=== PATIENT | female | born 1975 | race African-American/Black ===

== ENCOUNTER 2022-06-08 09:03 | Inpatient (IN) | payer MEDICAID ==
[~2022-06-08] VITALS: Ht 157.5 cm; Wt 76.7 kg
--- NOTE | 2022-06-08 09:05 | NUR ---
called [facility] social [facility] director. states its daniela today. will come after the meeting after 929.
--- NOTE | 2022-06-08 09:23 | NUR ---
rapid influenza and covid swab taken sent to lab
--- NOTE | 2022-06-08 09:24 | NUR ---
waiver signed by pt.
[2022-06-08] MEDS ORDERED: ACETAMINOPHEN ES 500 MG TABLET ONE (09:39)
--- NOTE | 2022-06-08 09:45 | NUR ---
urine sample obtained sent to lab
[2022-06-08] MEDS ORDERED: ACETAMINOPHEN ES 500 MG TABLET PO ONE (10:00)
[2022-06-08 10:22] LABS: BILIRUBIN,URINE 1+ (NEGATIVE); COLOR,URINE DARK YELLOW (YELLOW); LEUKOCYTE ESTERASE ,URINE NEGATIVE (NEGATIVE); NITRITE, URINE POSITIVE (NEGATIVE); PH,URINE 6.5 (5.0-8.0); PROTEIN,URINE 2+ mg/dl (NEGATIVE); UGLUCOSE TRACE mg/dL (NEGATIVE); UROBILINOGEN,URINE >=8.0 EU/dL (0.2)
[2022-06-08] MEDS ORDERED: LISI20TA30 PO (10:44)
[2022-06-08] MEDS ORDERED: LORA10TA7 PO (10:44)
[2022-06-08] MEDS ORDERED: ALBU18HF2 IH (10:44)
[2022-06-08] MEDS ORDERED: FLUT16SP (10:44)
[2022-06-08] MEDS ORDERED: CEFTRIAXONE 1GM BAG (ER ONLY) 50 ML IV ONE ×2 (11:00→11:33)
[2022-06-08] MEDS ORDERED: AZITHROMYCIN 500 MG in IV D5W 250 ML IV ONE (11:00)
[2022-06-08] MEDS ORDERED: IV NS 0.9% 1,000 ML BAG IV ONE ×2 (11:00→12:30)
[2022-06-08 11:17] LABS: BASOPHILS % (AUTO) 0.1 % (0.0-2.0); HEMATOCRIT 46 % (33-45); HEMOGLOBIN 15.4 g/dL (11.5-14.8); LYMPHOCYTES # (AUTO) 0.3 K/uL (0.8-4.8); MEAN CORPUSCULAR HGB CONC 33 g/dl (31.0-36.0); MEAN CORPUSCULAR VOLUME 99 fL (82-100); MONOCYTES # (AUTO) 0.3 K/uL (0.1-1.30); MONOCYTES % (AUTO) 1.7 % (2.0-12.0); NEUTROPHILS # (AUTO) 17.1 K/uL (1.8-8.9); NEUTROPHILS % (AUTO) 96.2 % (43.0-81.0); PLATELET COUNT (AUTO) 156 K/uL (150-450); RED BLOOD CELL COUNT(AUTO) 4.66 MIL/uL (4.0-5.2); WHITE BLOOD COUNT (AUTO) 17.7 K/uL (4.3-11.0)
[2022-06-08 11:42] LABS: ALANINE AMINOTRANSFERASE 143 U/L (12-78); ALKALINE PHOSPHATASE 83 U/L (46-116); ASPARTATE AMINOTRANSFERASE 102 U/L (15-37); BILIRUBIN,TOTAL 2.9 mg/dL (0.2-1.0); CALCIUM, SERUM 8.6 mg/dL (8.5-10.1); CARBON DIOXIDE 25 mmol/L (21-32); CHLORIDE 98 mmol/L (98-107); CREATININE 0.8 mg/dL (0.6-1.3); GLUCOSE 121 mg/dL (74-106); POTASSIUM 3.2 mmol/L (3.5-5.1); SODIUM SERUM 131 mmol/L (136-145); TOTAL PROTEIN, SERUM 7.7 g/dL (6.4-8.2); UREA NITROGEN, BLOOD 14 mg/dL (7-18)
--- NOTE | 2022-06-08 12:10 | NUR ---
Television Installer Helper Consult SW was informed that pt. was experiencinghomelessness. Pt. is a 46 year old black female who is in the ER bed 3. Sw met with pt. at bedside. Pt. stated that she had been homeless for 10 months. Pt added her daughter as a person to notify ([facility] ). Pt. reported that she receives calFresh. Pt. is independent with her ADL's. Pt. denied psychiatic dx, hallucinations, and denied suicidal and homicial ideation. Sw offered pt. homeless resources and directions to [facility] (Address: [id number] [place] [phone]) in which pt accepted. Pt signed homeless waiver form and was placed in her chart. Year-round shelters: [place] [facility] [place] [address] [place] [address] ; [facility] [place] [address] [place] [address]; [place] [facility] [address] [facility] [address] Hygiene: [facility]: [address] [address] [place] ; [facility] [address] [facility] ; [facility] [address] [facility] . Food Resources: [place] [facility] at [facility]- [address] [facility]; Meet Each Need with Dignity ([facility]) [address] [facility] [place]; [facility] 4352 [facility]; [facility] 9[address] [facility]. Mental Health resources provided: [facility] [address] [place] [address] ; [facility] [address] [facility] [address], [place] [address] ; Elo Leggett [facility] [address] [place] [address] ; [facility] [place], [place] [phone] Healthcare Clinics: [facility] [address] [facility], [address] [place]. [place] ; [facility] [address] [facility] [address] [place] [address]; [facility] [address] [place] [address] [phone]) [phone] Counseling--Outpatient [facility] [address] [facility], [place] [address] (Specializes in in-depth psychotherapy for emotional distress: anxiety, depression, interpersonal conflicts, life transitions, childhood abuse) [facility] [address] [place] [address] (Assist with solving problem marital difficulties, separation & divorce, aging parents, & grief, chronic & terminal illness) [facility] [address] [place] [address] (Deal with loss & grief, anxiety, marital difficulties) Homebound/Mental Health Services [address] [facility], [address] [place] [address] (Provide in-home mental services to people who are incapable of leaving their homes) [facility] Elder[facility] [address] [facility] [place] [address] [facility] [address] [facility]. [place], [place] [phone] PSYCHIATRIC OUTPATIENT SERVICES [facility] Partial Hospitalization and Intensive Outpatient Program (Managed Care and [place] Only)[address] [facility] [phone] [facility] Partial Hospitalization and Outpatient [id number] [facility]. [address] [place], [place] [phone] [facility] [id number] [facility] [address] [place], [place] [phone] [facility] Partial Hospitalization and Outpatient [id number] [facility] Justino, [phone] Substance Abuse resources provided included: [facility] Substance Abuse Self-Helpline ([facility]) ; [facility] [address] [facility]. [place] [phone] ; [facility] [place] [address] [facility] [address] ; [facility] [address] [facility] [address] ; [facility] [address] [facility] [address] ; [facility] 4940 [facility] [phone] ; [facility] 9[address] [facility] [phone] ; [facility] Substance Abuse Helpline([facility] ; [facility] ; [facility] [place]; [facility] [place]; [facility] [place]; [facility] Jamar мария; [facility] [place]; [facility] [place]; [facility]; [facility] [place] [place]; Alcoholics Anonymous -SFV; Eq-Rxvh-Dwtfcru ; Marijuana Anonymous -SFV; Narcotics Anonymous www.na.org;
--- NOTE | 2022-06-08 13:18 | NUR ---
Brian andrews in [facility] - 06/08/22 at 1318 by ULISSES swapna cho" [phone]
--- NOTE | 2022-06-08 14:04 | NUR ---
RUY MARTINEZ [phone]. PLANNING TO TRANSFER PATIENT TO A CONTRACTED FACILITY/HOSPITAL. WILL CALL US BACK WITHIN A HOUR. PRIMARY RN MADE AWARE.
--- NOTE | 2022-06-08 14:38 | NUR ---
[facility] CALLED [employer] [facility]ANT [facility]AG[facility].
--- NOTE | 2022-06-08 14:53 | NUR ---
lab reported lactic acid 2.4
[2022-06-08] MEDS ORDERED: Z GUARD REMEDY 4 OZ OINT TP PRN (16:00)
[2022-06-08] MEDS ORDERED: ONDANSETRON HCL/PF 4 MG/2 ML VIAL IVP PRN (16:00)
[2022-06-08] MEDS ORDERED: ALBUTEROL SULFATE 8 GM HFA.AER.AD IH PRN (16:00)
[2022-06-08] MEDS: ENOXAPARIN SODIUM 40 MG/0.4 ML DISP.SYRIN SQ SCH (16:00)
[2022-06-08] MEDS ORDERED: MAGNESIUM HYDROXIDE 30 ML UDC PO PRN (16:00)
[2022-06-08] MEDS ORDERED: LORATADINE 10 MG TABLET PO PRN (16:00)
[2022-06-08] MEDS ORDERED: IV NS 0.9% 1,000 ML IV PRN (16:00)
[2022-06-08] MEDS ORDERED: FLUTICASONE PROPIONATE 16 GM BOTTLE NS PRN (16:00)
[2022-06-08] MEDS ORDERED: MAG HYDROX/AL HYDROX/SIMETH 30 ML UDC PO PRN (16:00)
[2022-06-08] MEDS ORDERED: ACETAMINOPHEN 325 MG TABLET PO PRN (16:00)
[2022-06-08] MEDS ORDERED: ALBUTEROL FS 2.5 MG/0.5 ML VIAL.NEB NEB PRN (16:30)
--- NOTE | 2022-06-08 19:35 | NUR ---
RECEIVED REPORT FROM FAZAL BROOKS. PATIENT CAME EARLIER WITH CC OF COUGH AND CONGESTION. AAOX4. ABLE TO MAKE NEEDS KNOWN. RECEIVED WITH IV CANNULA G20 ON LEFT AC. PATIENT FOR ADMISSION DUE TO PNEUMONIA. VITALS BEING MONITORED.
--- NOTE | 2022-06-08 20:25 | NUR ---
RO[facility]
--- NOTE | 2022-06-08 21:00 | NUR ---
CALLED [facility], WAITING TO GIVE REPORT TO FAZAL FRANK
--- NOTE | 2022-06-08 21:13 | NUR ---
REPORT GIVEN TO PIERRE TORRES
--- NOTE | 2022-06-08 21:40 | NUR ---
COVID PCR DONE AND SENT TO LAB
--- NOTE | 2022-06-08 21:58 | NUR ---
PT TRANSFERRED TO [facility] VIA ACLS PROTOCOL. VSS. ALL BELONGINGS WITH PT
--- NOTE | 2022-06-08 22:00 | NUR ---
RN INITIAL NOTE PT ARRIVED TO UNIT VIA GURNEY. PT A&O X4, CALM, COOPERATIVE. PT ADMITTED FOR PNEUMONIA WITH SIGNIFICANT MEDICAL HISTORY OF ASTHMA. PER PT REPORT, PT SMOKES CIGARETTES AND LAST SMOKED 4 DAYS AGO. PT ON 5L NC WITH CURRENT O2SAT OF 95%; PT NOTED TO HAVE NON-PRODUCTIVE COUGH AND REPORTS OF SOB, ESPECIALLY WHEN TURNING TO HER LEFT SIDE. HR NOTED TO BE ELEVATED AT 109 AND BP 144/95; OTHERWISE VSS, WILL CONTINUE TO MONITOR THROUGHOUT THE NIGHT NEEDED. ALL BELONGINGS CHECKED AND ACCOUNTED FOR. SKIN ASSESSMENT DONE; SKIN NOTED TO BE INTACT. IV ACCESS ON LAC 20G, INTACT AND PATENT, FLUSHES EASILY WITH NO RESISTANCE; NS STARTED AT 75 ML/HR. PUREWICK APPLIED TO PT PT ENDORSES OF BLE WEAKNESS. BED IN LOWEST POSITION, CALL LIGHT WITHIN REACH, SIDE RAILS UP X2. WILL INITIATE PLAN OF CARE.
--- NOTE | 2022-06-08 23:11 | NUR ---
RN NOTE LOVENOX SCHEDULED FOR 1600 NOT ADMINISTERED PT WAS NOT PRESENT IN UNIT AT THIS TIME. PT ARRIVED TO UNIT AROUND 2200.
--- NOTE | 2022-06-08 23:33 | NUR ---
RN NOTE PT COMPLAINS OF GENERALIZED BODY PAIN. PT ADMINISTERED TYLENOL 650 MG.
[2022-06-09] VITALS: BP 144/95
[2022-06-09 04:00] VITALS: BP 135/85
--- NOTE | 2022-06-09 06:29 | NUR ---
MS RN CLOSING NOTE PT REMAINS IN BED, ASLEEP BUT EASILY AROUSABLE, A&O X4, CALM, COOPERATIVE. CONTINUES TO BE ON 5L NC WITH O2SAT RANGING FROM 95%-98%; CONTINUES TO HAVE NON-PRODUCTIVE COUGH AND SOB AT TIMES; NO OTHER S/S OF RESP DISTRESS. VSS THROUGHOUT THE NIGHT WITH NO SIGNIFICANT CHANGES. PUREWICK IN PLACE DRAINING CLEAR AND YELLOW URINE. LAC 20G INTACT AND PATENT, FLUSHES EASILY WITH NO RESISTANCE; NS INFUSING AT 75 ML/HR. ALL DUE MEDS ADMINISTERED DURING THE NIGHT. BED IN LOWEST POSITION, CALL LIGHT WITHIN REACH, SIDE RAILS UP X2. WILL ENDORSE TO DAYSHIFT NURSE TO CONTINUE CARE.
[2022-06-09 06:43] LABS: BASOPHILS % (AUTO) 0.1 % (0.0-2.0); HEMATOCRIT 43 % (33-45); LYMPHOCYTES # (AUTO) 0.6 K/uL (0.8-4.8); LYMPHOCYTES % (AUTO) 3.3 % (20.0-44.0); MEAN CORPUSCULAR HGB CONC 33 g/dl (31.0-36.0); MEAN CORPUSCULAR VOLUME 101 fL (82-100); MONOCYTES # (AUTO) 0.7 K/uL (0.1-1.30); NEUTROPHILS # (AUTO) 16.7 K/uL (1.8-8.9); NEUTROPHILS % (AUTO) 92.6 % (43.0-81.0); PLATELET COUNT (AUTO) 124 K/uL (150-450); RED BLOOD CELL COUNT(AUTO) 4.22 MIL/uL (4.0-5.2)
[2022-06-09 06:51] LABS: CALCIUM, SERUM 8.6 mg/dL (8.5-10.1); CREATININE 0.7 mg/dL (0.6-1.3); MAGNESIUM 1.9 mg/dL (1.8-2.4); PHOSPHORUS 2.9 mg/dL (2.5-4.9); POTASSIUM 3.4 mmol/L (3.5-5.1)
--- NOTE | 2022-06-09 07:49 | NUR ---
MS R NOTE PT IN BED, ASLEEP BUT EASILY AROUSABLE, A&O X4, CALM, COOPERATIVE. CONTINUES TO BE ON 5L NC NO SOB NOTED AT THIS TIME, NO OTHER S/S OF RESP DISTRESS. PUREWICK IN PLACE DRAINING CLEAR AND YELLOW URINE. LAC 20G INTACT AND PATENT, FLUSHES WELL,; NS INFUSING AT 75 ML/HR. BED IN LOWEST POSITION, CALL LIGHT WITHIN REACH, SIDE RAILS UP X2. WILL CONT TO MONITOR
[2022-06-09 08:00] VITALS: BP 127/92
[2022-06-09] MEDS: LISINOPRIL (20MG) 20 MG TABLET PO SCH (08:27)
[2022-06-09] MEDS ORDERED: POTASSIUM CHLORIDE 20 MEQ TAB.PRT.SR PO ONE (11:00)
[2022-06-09] MEDS: AZITHROMYCIN 500 MG in IV D5W 250 ML IV SCH (11:05)
--- NOTE | 2022-06-09 11:27 | NUR ---
ms rn note dtr pita at bedside aware that urine color uri reddish, aware that on ivf a and at also aware that k 3.4 was replaced by pharmacist
[2022-06-09 11:56] LABS: BAND % (MANUAL) 25 % (0.0-5.0); LYMPHOCYTES % (MANUAL) 13 % (16-48); NEUTROPHILS % (MANUAL) 54 (42-76)
[2022-06-09 11:57] LABS: MONOCYTES % (MANUAL) 8 % (0-11.0)
[2022-06-09] MEDS: CEFTRIAXONE 1 G in IV D5W 50 ML IV SCH (12:11)
--- NOTE | 2022-06-09 12:30 | NUR ---
MS RN NOTE ABDOMEN US DONE ORDERED, KEEP CLEAN DRY
[2022-06-09 13:41] LABS: ALBUMIN 2.2 g/dL (3.4-5.0); BILIRUBIN,DIRECT 0.5 mg/dL (0.0-0.2); BILIRUBIN,TOTAL 1.2 mg/dL (0.2-1.0); TOTAL PROTEIN, SERUM 6.3 g/dL (6.4-8.2)
[2022-06-09] MEDS: IV NS 0.9% 1,000 ML IV SCH ×2 (13:55→18:02)
--- NOTE | 2022-06-09 15:56 | NUR ---
MS RN NOTE PATIENT RESTING COMFORTABLY IN BED , ON IVF ORDERED AT 175 ML PER HOUR , ON RA, NO SOB , WILL MONITOR
[2022-06-09 16:00] VITALS: BP 127/89
--- NOTE | 2022-06-09 16:36 | NUR ---
ms rn note per pharmacy started on Bactroban bid mrsa nares
--- NOTE | 2022-06-09 18:43 | NUR ---
MS RN NOTE PATIENT IN BED ,ALERT ORIENTED, ON 3L NC ,NO SOB NOTED AT THIS TIME, ON PURRE WICK TOLERATED, LAC HL INTACT AND FLUSHED WELL , ON IVF ORDERED , BED IN LOWEST AND LOCKED POSITION , CALL LIGHT WITHIN REACH, WILL CONT TO MONITOR CLOSELY
--- NOTE | 2022-06-09 19:30 | NUR ---
PATIENT IN BED AWAKE, ALERT ORIENTED X4, ON 5LPM VIA NC, NO SOB NOTED AT THIS TIME, ON PURE WICK, LAC #20 INFUSING NS AT 175ML/HR,, SAFETY MEASURES IN PLACE. WILL CONTINUE PLAN OF CARE.
[2022-06-09] MEDS: MUPIROCIN OINT 2% 22 GM TUBE NS SCH (20:46)
[2022-06-09] MEDS: ENOXAPARIN SODIUM 40 MG/0.4 ML DISP.SYRIN SQ SCH (20:47)
[2022-06-10] VITALS: BP 120/85
[2022-06-10] MEDS: IV NS 0.9% 1,000 ML IV SCH ×6 (01:45→23:54)
--- NOTE | 2022-06-10 06:44 | NUR ---
PT ASLEEP, EASILY AWAKEN BY CALLING HER NAME. ALERT ORIENTED X4, ON 5LPM VIA NC, NO SOB NOTED AT THIS TIME, LAC #20 INFUSING NS AT 175ML/HR,, DUE MEDS GIVEN. NEEDS ATTENDED. SAFETY MEASURES MAINTAINED. WILL ENDORSE TO NEXT NURSE ON DUTY FOR CONTINUITY OF CARE.
--- NOTE | 2022-06-10 07:05 | NUR ---
MS RN NOTE: RECEIVED PT. IN BED, AWAKE, AOX4, NO COMPLAINTS OF PAIN/DISCOMFORT AT THIS TIME. ON 02 VIA NASAL CANNULA AT 5L/MIN, NO S/S OF RESPIRATORY DISTRESS. ON PUREWICK, DRAINING CLEAR YELLOW URINE. SKIN INTACT. IV ACCESS ON L AC #20G, WITH NS RUNNING AT 175 ML/HR. IV DRESSING C/D/I, WITH NO S/S OF INFILTRATION. SAFETY MEASURES IN PLACE: BED IN LOWEST AND LOCKED POSITION, SIDE RAILS UPX2, HOB ELEVATED AT 30 DEGREES, BED ALARM ON, CALL LIGHT AND BELONGINGS WITHIN REACH. WILL ENCOURAGE FREQUENT REPOSITIONING IN BED. WILL CONTINUE TO MONITOR PT. FOR ANY CHANGES.
[2022-06-10 07:17] LABS: BASOPHILS % (AUTO) 0.4 % (0.0-2.0); EOSINOPHILS % (AUTO) 0.4 % (0.0-6.0); HEMATOCRIT 40 % (33-45); HEMOGLOBIN 13.2 g/dL (11.5-14.8); LYMPHOCYTES # (AUTO) 1.1 K/uL (0.8-4.8); LYMPHOCYTES % (AUTO) 8.6 % (20.0-44.0); MEAN CORPUSCULAR HGB CONC 33 g/dl (31.0-36.0); MEAN CORPUSCULAR VOLUME 100 fL (82-100); MONOCYTES # (AUTO) 0.8 K/uL (0.1-1.30); MONOCYTES % (AUTO) 6.4 % (2.0-12.0); NEUTROPHILS # (AUTO) 10.9 K/uL (1.8-8.9); NEUTROPHILS % (AUTO) 84.2 % (43.0-81.0); PLATELET COUNT (AUTO) 137 K/uL (150-450)
[2022-06-10 07:58] LABS: ALBUMIN 2.2 g/dL (3.4-5.0); BILIRUBIN,DIRECT 0.4 mg/dL (0.0-0.2); BILIRUBIN,TOTAL 0.7 mg/dL (0.2-1.0); CALCIUM, SERUM 8.1 mg/dL (8.5-10.1); CREATININE 0.6 mg/dL (0.6-1.3); POTASSIUM 3.5 mmol/L (3.5-5.1); TOTAL PROTEIN, SERUM 6.5 g/dL (6.4-8.2)
[2022-06-10 08:00] VITALS: BP 138/84
[2022-06-10] MEDS ORDERED: POTASSIUM PHOSPHATE MM 15 MMOL in IV NS 0.9% 250 ML IV SCH (08:30)
[2022-06-10] MEDS: POTASSIUM PHOSPHATE MM 7.5 MMOL in IV NS 0.9% 100 ML IV SCH ×4 (09:42→19:36)
[2022-06-10] MEDS: LISINOPRIL (20MG) 20 MG TABLET PO SCH (09:43)
[2022-06-10] MEDS: AZITHROMYCIN 500 MG in IV D5W 250 ML IV SCH (11:00)
[2022-06-10] MEDS ORDERED: ALBUTEROL FS 2.5 MG/0.5 ML VIAL.NEB NEB PRN (11:30)
[2022-06-10] MEDS ORDERED: ALBUTEROL SULFATE 8 GM HFA.AER.AD IH PRN (11:30)
[2022-06-10] MEDS: IPRATROPIUM NEB FS 0.5 MG/2.5 ML AMPUL.NEB NEB SCH ×2 (12:00→18:00)
[2022-06-10] MEDS ORDERED: IPRATROPIUM/ALBUTEROL INHALER IH SCH (12:00)
[2022-06-10] MEDS: MUPIROCIN OINT 2% 22 GM TUBE NS SCH ×2 (12:33→21:15)
[2022-06-10] MEDS: CEFTRIAXONE 1 G in IV D5W 50 ML IV SCH (12:34)
[2022-06-10 16:00] VITALS: BP 148/91
[2022-06-10 17:42] LABS: BAND % (MANUAL) 8 % (0.0-5.0); EOSINOPHILS % (MANUAL) 1 % (0-4); LYMPHOCYTES % (MANUAL) 5 % (16-48); MONOCYTES % (MANUAL) 3 % (0-11.0); NEUTROPHILS % (MANUAL) 83 (42-76)
--- NOTE | 2022-06-10 19:10 | NUR ---
MS RN CLOSING NOTE: PT. REMAINS IN BED, AWAKE, AOX4, NO COMPLAINTS OF PAIN/DISCOMFORT AT THIS TIME. ON 02 VIA NASAL CANNULA AT 5L/MIN, NO S/S OF RESPIRATORY DISTRESS. ON PUREWICK, DRAINED 1200ML CLEAR YELLOW URINE THIS SHIFT. IV ACCESS ON L AC #20G, WITH NS RUNNING AT 175 ML/HR. IV DRESSING C/D/I, WITH NO S/S OF INFILTRATION. SAFETY MEASURES MAINTAINED: BED IN LOWEST AND LOCKED POSITION, SIDE RAILS UPX2, HOB ELEVATED AT 30 DEGREES, BED ALARM ON, CALL LIGHT AND BELONGINGS WITHIN REACH. ENCOURAGED FREQUENT REPOSITIONING IN BED. ENDORSED CONTINUITY OF CARE TO CRIMINAL JUSTICE PROFESSOR RN.
--- NOTE | 2022-06-10 19:30 | NUR ---
RN OPENING NOTE PT A&OX4. SKIN INTACT, WARM, AND DRY. RESPIRATIONS EVEN AND UNLABORED ON NC AT 5 LPM WITH O2 SAT OF 100%. LAC 20G IV INTACT AND RUNNING FINAL BAG OF POTASSIUM PHOSPHATE. NO ACUTE SIGNS OF DISTRESS. DENIES OTHER NEEDS AT THIS TIME. SAFETY PRECAUTIONS IN PLACE. BED LOCKED AND AT LOWEST LEVEL WITH 2 RAILS UP. CALL LIGHT WITHIN REACH.
[2022-06-10 20:00] VITALS: BP 141/95
[2022-06-10] MEDS: ENOXAPARIN SODIUM 40 MG/0.4 ML DISP.SYRIN SQ SCH (21:13)
[2022-06-11 04:00] VITALS: BP 165/99
[2022-06-11] MEDS: IV NS 0.9% 1,000 ML IV SCH ×2 (05:31→11:29)
[2022-06-11] MEDS: IPRATROPIUM NEB FS 0.5 MG/2.5 ML AMPUL.NEB NEB SCH ×4 (06:00→18:00)
--- NOTE | 2022-06-11 06:46 | NUR ---
RN CLOSING NOTE PT A&OX4. SKIN INTACT, WARM, AND DRY. RESPIRATIONS EVEN AND UNLABORED ON NC AT 5 LPM WITH O2 SAT OF 100%. LAC 20G IV INTACT. NO ACUTE SIGNS OF DISTRESS. DENIES OTHER NEEDS AT THIS TIME. SAFETY PRECAUTIONS IN PLACE. BED LOCKED AND AT LOWEST LEVEL WITH 2 RAILS UP. CALL LIGHT WITHIN REACH.
[2022-06-11] MEDS: ALBUTEROL FS 2.5 MG/3 ML VIAL.NEB NEB SCH ×3 (07:35→19:30)
[2022-06-11 07:38] LABS: BILIRUBIN,DIRECT 0.2 mg/dL (0.0-0.2); BILIRUBIN,TOTAL 0.5 mg/dL (0.2-1.0); TOTAL PROTEIN, SERUM 6.3 g/dL (6.4-8.2)
[2022-06-11 08:00] VITALS: BP 154/60
[2022-06-11] MEDS: LISINOPRIL (20MG) 20 MG TABLET PO SCH (09:36)
[2022-06-11] MEDS: MUPIROCIN OINT 2% 22 GM TUBE NS SCH ×2 (09:38→21:56)
[2022-06-11] MEDS: AZITHROMYCIN 500 MG in IV D5W 250 ML IV SCH (11:29)
[2022-06-11 12:00] VITALS: BP 114/106
[2022-06-11] MEDS ORDERED: LEVO750T46 PO (12:04)
[2022-06-11] MEDS ORDERED: ALBU18HF2 IH (12:04)
[2022-06-11] MEDS ORDERED: LISI20TA30 PO (12:04)
[2022-06-11] MEDS: CEFTRIAXONE 1 G in IV D5W 50 ML IV SCH (12:59)
[2022-06-11 16:00] VITALS: BP 156/105
[2022-06-11 20:00] VITALS: BP 152/89
[2022-06-11] MEDS: ENOXAPARIN SODIUM 40 MG/0.4 ML DISP.SYRIN SQ SCH (21:51)
[2022-06-12] MEDS: ALBUTEROL FS 2.5 MG/3 ML VIAL.NEB NEB SCH ×4 (00:50→19:30)
[2022-06-12 04:00] VITALS: BP 151/91
[2022-06-12] MEDS: IPRATROPIUM NEB FS 0.5 MG/2.5 ML AMPUL.NEB NEB SCH ×4 (06:00→19:30)
[2022-06-12 08:00] VITALS: BP 135/83
[2022-06-12 08:33] LABS: BASOPHILS % (AUTO) 0.4 % (0.0-2.0); EOSINOPHILS % (AUTO) 0.5 % (0.0-6.0); HEMATOCRIT 42 % (33-45); HEMOGLOBIN 14.2 g/dL (11.5-14.8); LYMPHOCYTES # (AUTO) 1.7 K/uL (0.8-4.8); LYMPHOCYTES % (AUTO) 16.5 % (20.0-44.0); MEAN CORPUSCULAR HGB CONC 34 g/dl (31.0-36.0); MEAN CORPUSCULAR VOLUME 96 fL (82-100); MONOCYTES # (AUTO) 2.4 K/uL (0.1-1.30); MONOCYTES % (AUTO) 23.5 % (2.0-12.0); NEUTROPHILS # (AUTO) 5.9 K/uL (1.8-8.9); NEUTROPHILS % (AUTO) 59.1 % (43.0-81.0); PLATELET COUNT (AUTO) 206 K/uL (150-450); RED BLOOD CELL COUNT(AUTO) 4.34 MIL/uL (4.0-5.2)
[2022-06-12 08:46] LABS: ALBUMIN 2.1 g/dL (3.4-5.0); BILIRUBIN,TOTAL 0.6 mg/dL (0.2-1.0); CALCIUM, SERUM 8.1 mg/dL (8.5-10.1); CREATININE 0.7 mg/dL (0.6-1.3); TOTAL PROTEIN, SERUM 6.8 g/dL (6.4-8.2)
[2022-06-12 08:52] LABS: POTASSIUM 2.5 mmol/L (3.5-5.1)
[2022-06-12] MEDS: LISINOPRIL (20MG) 20 MG TABLET PO SCH (08:59)
[2022-06-12] MEDS: MUPIROCIN OINT 2% 22 GM TUBE NS SCH ×2 (09:02→21:38)
[2022-06-12] MEDS ORDERED: VANCOMYCIN 1.25 GM in IV D5W 250 ML IV ONE (10:00)
[2022-06-12] MEDS ORDERED: POTASSIUM CHLORIDE 20 MEQ TAB.PRT.SR PO ONE (11:00)
[2022-06-12] MEDS: AZITHROMYCIN 500 MG in IV D5W 250 ML IV SCH (11:12)
[2022-06-12 12:00] VITALS: BP 130/95
[2022-06-12] MEDS: CEFTRIAXONE 1 G in IV D5W 50 ML IV SCH (14:26)
[2022-06-12] MEDS: LEVOFLOXACIN 750 MG /D5W 150ML 150 ML IV SCH (15:51)
[2022-06-12] MEDS: VANCOMYCIN 0.75 GM in IV D5W 250 ML IV SCH (18:00)
--- NOTE | 2022-06-12 19:40 | NUR ---
RN OPENING NOTE RECEIVED PATIENT IN BED; AWAKE, A/O X 4. ON O2 INHALATION @ 3 LPM VIA NASAL CANNULA; TOLERATING WELL. BREATHING EVEN AND NONLABORED. NOT IN ANY FORM OF RESPIRATORY DISTRESS. DENIES ANY PAIN OR DISCOMFORT AT THIS TIME. WITH IV ACCESS ON LEFT ANTECUBITAL 20G; PATENT, INTACT AND SALINE LOCKED. ABLE TO MAKE NEEDS KNOWN. SAFETY MEASURES IMPLEMENTED: CALL LIGHT AND TABLE WITHIN REACH, SIDE RAILS UP X 2, BED IN LOWEST LOCKED POSITION. WILL CONTINUE TO MONITOR.
[2022-06-12 20:00] VITALS: BP 135/96
--- NOTE | 2022-06-12 21:26 | NUR ---
TX NOT GIVEN DUE TO PENDING PCR COVID TEST. CHARGE NURSE NOTIFIED Addendum: 06/13/22 at 0119 by MONIKA OG RT TX NOT GIVEN DUE TO PCR COVID TEST RESULT Addendum: 06/13/22 at 0121 by MONIKA OG RT TX NOT GIVEN DUE TO PENDING PCR COVID TEST RESULT.
[2022-06-12] MEDS: ENOXAPARIN SODIUM 40 MG/0.4 ML DISP.SYRIN SQ SCH (21:39)
[2022-06-13] MEDS: IPRATROPIUM NEB FS 0.5 MG/2.5 ML AMPUL.NEB NEB SCH ×4 (01:17→19:30)
[2022-06-13] MEDS: ALBUTEROL FS 2.5 MG/3 ML VIAL.NEB NEB SCH ×4 (01:18→19:30)
[2022-06-13 03:57] LABS: BAND % (MANUAL) 10 % (0.0-5.0); BASOPHILS % (MANUAL) 0 % (0.0-2.0); EOSINOPHILS % (MANUAL) 0 % (0-4); LYMPHOCYTES % (MANUAL) 13 % (16-48); MONOCYTES % (MANUAL) 16 % (0-11.0); NEUTROPHILS % (MANUAL) 61 (42-76)
[2022-06-13 04:00] VITALS: BP 122/80
[2022-06-13 05:47] LABS: BASOPHILS % (AUTO) 0.3 % (0.0-2.0); EOSINOPHILS % (AUTO) 1.6 % (0.0-6.0); HEMATOCRIT 40 % (33-45); HEMOGLOBIN 13.7 g/dL (11.5-14.8); LYMPHOCYTES # (AUTO) 1.8 K/uL (0.8-4.8); LYMPHOCYTES % (AUTO) 17.5 % (20.0-44.0); MEAN CORPUSCULAR HGB CONC 35 g/dl (31.0-36.0); MEAN CORPUSCULAR VOLUME 98 fL (82-100); MONOCYTES # (AUTO) 2.2 K/uL (0.1-1.30); MONOCYTES % (AUTO) 21.3 % (2.0-12.0); NEUTROPHILS # (AUTO) 6.2 K/uL (1.8-8.9); NEUTROPHILS % (AUTO) 59.3 % (43.0-81.0); PLATELET COUNT (AUTO) 247 K/uL (150-450); RED BLOOD CELL COUNT(AUTO) 4.07 MIL/uL (4.0-5.2); WHITE BLOOD COUNT (AUTO) 10.4 K/uL (4.3-11.0)
--- NOTE | 2022-06-13 05:51 | NUR ---
RN NOTES Follow up call made to laboratory for PCR result done 06/08/22; no result yet per Kinjal
[2022-06-13] MEDS: VANCOMYCIN 0.75 GM in IV D5W 250 ML IV SCH ×2 (06:01→17:48)
[2022-06-13 06:11] LABS: CALCIUM, SERUM 8.2 mg/dL (8.5-10.1); CREATININE 0.5 mg/dL (0.6-1.3); PHOSPHORUS 4.2 mg/dL (2.5-4.9); POTASSIUM 3.3 mmol/L (3.5-5.1)
--- NOTE | 2022-06-13 06:50 | NUR ---
RN CLOSING NOTE PATIENT IN BED; AWAKE, A/O X 4. STILL ON O2 INHALATION @ 3 LPM VIA NASAL CANNULA; WELL TOLERATED. BREATHING EQUAL AND UNLABORED. IN NO ACUTE DISTRESS. NO C/O ANY PAIN OR DISCOMFORT AT THIS TIME. WITH IV ACCESS ON LEFT AC 20G; PATENT, INTACT AND SALINE LOCKED. ALL NEEDS ATTENDED. SAFETY MEASURES MAINTAINED: CALL LIGHT AND TABLE WITHIN REACH, SIDE RAILS UP X 2, BED IN LOWEST LOCKED POSITION. ENDORSED TO MORNING SHIFT FOR KAMILAH.
[2022-06-13] MEDS: MUPIROCIN OINT 2% 22 GM TUBE NS SCH ×2 (08:40→21:04)
[2022-06-13] MEDS: LISINOPRIL (20MG) 20 MG TABLET PO SCH (08:41)
[2022-06-13] MEDS ORDERED: POTASSIUM CHLORIDE 20 MEQ TAB.PRT.SR PO SCH (10:00)
[2022-06-13 12:00] VITALS: BP 143/96
[2022-06-13] MEDS: CEFTRIAXONE 1 G in IV D5W 50 ML IV SCH (13:04)
[2022-06-13] MEDS: LEVOFLOXACIN 750 MG /D5W 150ML 150 ML IV SCH (14:39)
[2022-06-13 16:04] LABS: LYMPHOCYTES % (MANUAL) 21 % (16-48); MONOCYTES % (MANUAL) 19 % (0-11.0); NEUTROPHILS % (MANUAL) 60 (42-76)
--- NOTE | 2022-06-13 18:14 | NUR ---
RN NOTE PT RESTING IN BED, IN O2 VIA NC @ 3L. NOT IN RESPI DISTRESS. PT ALERT AND VERBALLY RESPONSIVE. WITH IV ACCESS ON LAC G20. INTACT AND PATENT. DUE MEDICATIONS GIVEN. AM/PM CARE RENDERED. SAFETY MEASURES MAINTAINED. V/S STABLE. WILL CONTINUE TO MONITOR.
[2022-06-13 20:00] VITALS: BP 133/83
--- NOTE | 2022-06-13 20:00 | NUR ---
RN OPENING NOTE RECEIVED PATIENT IN BED; AWAKE, A/O X 4. ON R/A NO SOB NO DISTRESS NOTED SATING 98 %TOLERATING WELL. BREATHING EVEN AND NONLABORED. NOT IN ANY FORM OF RESPIRATORY DISTRESS. DENIES ANY PAIN OR DISCOMFORT AT THIS TIME. WITH IV ACCESS ON RIGHT FOREARM ; PATENT, INTACT AND SALINE LOCKED. ABLE TO MAKE NEEDS KNOWN. SAFETY MEASURES IMPLEMENTED: CALL LIGHT AND TABLE WITHIN REACH, SIDE RAILS UP X 2, BED IN LOWEST LOCKED POSITION. WILL CONTINUE TO MONITOR.
--- NOTE | 2022-06-13 20:11 | NUR ---
RT NOTE TX NOT GIVEN DUE TO PENDING PCR RESULTS.
[2022-06-13] MEDS: ENOXAPARIN SODIUM 40 MG/0.4 ML DISP.SYRIN SQ SCH (20:59)
[2022-06-14] MEDS: ALBUTEROL FS 2.5 MG/3 ML VIAL.NEB NEB SCH ×4 (01:30→19:30)
[2022-06-14] MEDS: IPRATROPIUM NEB FS 0.5 MG/2.5 ML AMPUL.NEB NEB SCH ×4 (01:30→19:30)
[2022-06-14 04:00] VITALS: BP 116/70
[2022-06-14] MEDS: VANCOMYCIN 0.75 GM in IV D5W 250 ML IV SCH (05:17)
[2022-06-14 05:54] LABS: CALCIUM, SERUM 8.4 mg/dL (8.5-10.1); CREATININE 0.6 mg/dL (0.6-1.3); POTASSIUM 3.3 mmol/L (3.5-5.1)
--- NOTE | 2022-06-14 06:11 | NUR ---
RN CLOSING NOTE PATIENT IN BED; AWAKE, A/O X 4. ON R/A SATING 95% WELL TOLERATED. BREATHING EQUAL AND UNLABORED. IN NO ACUTE DISTRESS. NO C/O ANY PAIN OR DISCOMFORT AT THIS TIME. WITH IV ACCESS ON RIGHT FOREARM 20G; PATENT, INTACT AND SALINE LOCKED. ALL NEEDS ATTENDED. SAFETY MEASURES MAINTAINED: CALL LIGHT AND TABLE WITHIN REACH, SIDE RAILS UP X 2, BED IN LOWEST LOCKED POSITION. WILL ENDORSE TO RN DAY SHIFT FOR CONTNUITY OF CARE.
--- NOTE | 2022-06-14 07:27 | NUR ---
MS RN NOTE PATIENT IN BED; AWAKE, A/O X 4. ON R/A SATING 95% ON RA WELL TOLERATED. BREATHING EQUAL AND UNLABORED. IN NO ACUTE DISTRESS. NO C/O ANY PAIN OR DISCOMFORT AT THIS TIME. WITH IV ACCESS ON RIGHT FOREARM 20G; PATENT, INTACT AND SALINE LOCKED. ALL NEEDS ATTENDED. SAFETY MEASURES MAINTAINED: CALL LIGHT AND TABLE WITHIN REACH, SIDE RAILS UP X 2, BED IN LOWEST LOCKED POSITION. WILL CONT TO MONITOR
[2022-06-14] MEDS: LISINOPRIL (20MG) 20 MG TABLET PO SCH (08:01)
[2022-06-14] MEDS: MUPIROCIN OINT 2% 22 GM TUBE NS SCH ×2 (08:03→21:45)
[2022-06-14 08:54] VITALS: BP 132/75
[2022-06-14] MEDS ORDERED: POTASSIUM CHLORIDE 20 MEQ TAB.PRT.SR PO ONE (09:00)
--- NOTE | 2022-06-14 10:41 | NUR ---
MS RN NOTE RESTING COMFORTABLY , KEEP CLEAN DRY , NOT IN DISTRESS
[2022-06-14] MEDS: CEFTRIAXONE 1 G in IV D5W 50 ML IV SCH (12:07)
[2022-06-14] MEDS: LEVOFLOXACIN 750 MG /D5W 150ML 150 ML IV SCH (13:47)
[2022-06-14 16:00] VITALS: BP 129/95
[2022-06-14] MEDS: VANCOMYCIN 1 GM in IV D5W 250 ML IV SCH (17:00)
--- NOTE | 2022-06-14 18:00 | NUR ---
ms rn note new hl on rt hand alida 24 inserted with good blood return ,will f\u
--- NOTE | 2022-06-14 18:21 | NUR ---
MS RN NOTE PATINT INBEC ALERT ORIENTED, RT HAND HL IN IN PLACE AND FLUSHED WELL , HAVING DINNER , ABLE TO EAT SELF , BED IN LOWEST AND LOCKED POSITION , CALL LIGHT WITHIN REACH ,SAFETY MEASURE IMPLEMENTED, ON RA, NO SOB NOTED , WILL CONT TO MONITOR CLOSELY
[2022-06-14 20:00] VITALS: BP 143/93
--- NOTE | 2022-06-14 20:00 | NUR ---
MS RN NOTE PT IN BED AWAKE. A/O X 4, NO SOB, NO DISTRESS OR DISCOMFORT NOTED. DENIES PAIN. RT HAND WITH SL #24G SIDE RAILS UP X 2 AND CALL LIGHT WITHIN REACH. VSS. CONTINUE TO MONITOR HER.
--- NOTE | 2022-06-14 20:15 | NUR ---
RT NOTE TX WITHHELD DUE TO PENDING PCR RESULTS. NO SOB NOTED.
[2022-06-14] MEDS: ENOXAPARIN SODIUM 40 MG/0.4 ML DISP.SYRIN SQ SCH (21:19)
[2022-06-15] MEDS: ALBUTEROL FS 2.5 MG/3 ML VIAL.NEB NEB SCH ×3 (01:15→12:31)
[2022-06-15] MEDS: IPRATROPIUM NEB FS 0.5 MG/2.5 ML AMPUL.NEB NEB SCH ×3 (01:15→12:31)
[2022-06-15 04:00] VITALS: BP 127/73
[2022-06-15] MEDS: VANCOMYCIN 1 GM in IV D5W 250 ML IV SCH (05:04)
--- NOTE | 2022-06-15 06:37 | NUR ---
MS RN NOTE PT IN BED AWAKE. NO DISTRESS OR DISCOMFORT NOTED. DENIES PAIN. ALL NEEDS ATTENDED. VSS. WILL ENDORSE TO DAY SHIFT NURSE FOR CONTINUE TO CARE.
--- NOTE | 2022-06-15 07:15 | NUR ---
RN notes Received patient in bed. Alert and conscious without active complaint. IV site over right hand is dry and intact with NS running at 75mL/hr. Call crane is placed within reach. Bed is locked and placed in the lowest position. All safety measures have been implemented. Will continue monitoring and care.
--- NOTE | 2022-06-15 07:46 | NUR ---
RT RESP HHN TX HELD. PATIENT COVID PCR TEST HAS NOT YET RETURNED NEGATIVE. PATIENT IN NO DISTRESS OR SOB
[2022-06-15 08:00] VITALS: BP 132/83
[2022-06-15 09:11] VITALS: BP 132/83
[2022-06-15] MEDS: MUPIROCIN OINT 2% 22 GM TUBE NS SCH (09:11)
[2022-06-15] MEDS: LISINOPRIL (20MG) 20 MG TABLET PO SCH (09:11)
[2022-06-15 09:53] LABS: CALCIUM, SERUM 8.3 mg/dL (8.5-10.1); CREATININE 0.6 mg/dL (0.6-1.3); POTASSIUM 3.6 mmol/L (3.5-5.1)
[2022-06-15] MEDS: CEFTRIAXONE 1 G in IV D5W 50 ML IV SCH (11:54)
[2022-06-15] MEDS ORDERED: LEVOFLOXACIN (250MG) 250 MG TABLET PO SCH (14:00)
--- NOTE | 2022-06-15 15:40 | NUR ---
Rn notes Patient is for discharge today. IV line is removed. Patient is able to walk independently without active complaint. Skilled Nursing information has been provided to patient. Also told her about getting oral antibiotics from a nearby pharmacy([facility]), she showed understanding. Escorted patient to the exit of the hospital.
== END 2022-06-15 15:50 | disposition home or self-care (01) | DRG 137 ==
LOC: ER 09:06 → TRANSITION 16:58 → TELE1 20:25 → MEDSG1 22:06
PROVIDERS: ADMIT Internal Medicine; ATTEND Internal Medicine
DX: J15.6 Pneumonia due to other Gram-negative bacteria (principal); J96.01 Acute respiratory failure with hypoxia; N17.0 Acute kidney failure with tubular necrosis; N39.0 Urinary tract infection, site not specified; E86.1 Hypovolemia; E87.1 Hypo-osmolality and hyponatremia; E87.20 Acidosis, unspecified; E87.6 Hypokalemia; F32.A Depression, unspecified; F41.9 Anxiety disorder, unspecified; I10 Essential (primary) hypertension; J45.909 Unspecified asthma, uncomplicated; Z20.822 Contact with and (suspected) exposure to COVID-19; Z59.00 Homelessness unspecified; R74.01 Elevation of levels of liver transaminase levels; K74.60 Unspecified cirrhosis of liver
CPT/HCPCS: 36415; 70220-TC; 71045-TC; 71250-TC; 76700-TC; 80048-TC; 80053-TC; 80076-TC; 80202-TC; 82550-TC; 83605-TC; 83735-TC; 84100-TC; 84484-TC; 84703-TC; 85025-TC; 85730-TC; 86713; 86738; 87040-TC; 87081-TC; 94799-TC; C9803; G0378; J0456; J0696; J1650; J1956; J3370; J3490; J7030; J7050; J7060; U0003

== ENCOUNTER 2025-03-28 08:08 | Emergency (ER) | payer MEDICAID ==
[~2025-03-28] VITALS: Ht 170.2 cm; Wt 104.8 kg
[~2025-03-28 08:08] MED LIST: ALBU18HF2 IH; FLUT16SP; LEVO750T46 PO; LISI20TA30 PO; LORA10TA7 PO
[2025-03-28 08:12] VITALS: TEMP 98.7
[2025-03-28] MEDS: IV NS 0.9% 1,000 ML BAG IV ONE (08:30)
[2025-03-28] MEDS ORDERED: LORAZEPAM INJ 2 MG/ML VIAL ONE (08:33)
[2025-03-28] MEDS: LORAZEPAM INJ 2 MG/ML VIAL IV ONE (08:36)
[2025-03-28 08:40] LABS: PLATELET COUNT (AUTO) 192 K/uL (150-450); RED BLOOD CELL COUNT(AUTO) 4.20 MIL/uL (4.0-5.2); RED CELL DISTRIBUTION WIDTH 14.0 % (11.5-15.0); WHITE BLOOD COUNT (AUTO) 6.1 K/uL (4.3-11.0)
[2025-03-28 08:53] LABS: ASPARTATE AMINOTRANSFERASE 65 U/L (15-37); CALCIUM, SERUM 8.3 mg/dL (8.5-10.1); CREATININE 1.0 mg/dL (0.6-1.3); SODIUM SERUM 141 mmol/L (136-145); TOTAL PROTEIN, SERUM 7.5 g/dL (6.4-8.2); UREA NITROGEN, BLOOD 11 mg/dL (7-18)
[2025-03-28] MEDS ORDERED: CHLO25CA22 PO (14:27)
[2025-03-28 16:24] VITALS: BP 130/87; O2SAT 96
== END 2025-03-28 16:00 | disposition home or self-care (01) ==
LOC: ER 08:11
DX: F10.239 Alcohol dependence with withdrawal, unspecified (principal); J06.9 Acute upper respiratory infection, unspecified; I10 Essential (primary) hypertension; I45.4 Nonspecific intraventricular block; J45.909 Unspecified asthma, uncomplicated; K70.9 Alcoholic liver disease, unspecified; Z59.00 Homelessness unspecified; Z79.899 Other long term (current) drug therapy; Z20.822 Contact with and (suspected) exposure to COVID-19; Y90.9 Presence of alcohol in blood, level not specified
CPT/HCPCS: 99285; 96374; 96361; 93005; 71045; 85025; 80048; 87070; 80076; 36415; 87880; 87426; 80143; 80320; J2060; J7030; 86403-TC; G0480